=== PATIENT | female | born 1995 | race Caucasian/White ===

== ENCOUNTER 2025-02-06 10:38 | Emergency (ER) | payer MEDICAID ==
[~2025-02-06] VITALS: Ht 172.7 cm; Wt 63.4 kg
--- NOTE | 2025-02-06 10:59 | Physician Documentation ---
History of Present Illness ~ Chief Complaint: Back Pain Stated Complaint: BACK PAIN Time Seen by MD: 10:59 HPI 29-year-old female who presents to the emergency department reporting that she bent forward at the waist two days ago to slat pickler a case of water. She felt immediate pain and she went to straighten. Pain is located left lower back. No chills or fever, no incontinence or numbness. She reports the pain as being very tight. Reports muscle spasm, and difficulty straightening. Medication Reconciliation Allergies: Coded Allergies: No Known Allergies (Unverified , 02/06/25) Scheduled Docusate Sodium (Colace), 1 CAP PO Q12H Naproxen (Naproxen), 1 TAB PO Q12H Polyethylene Glycol 3350 (Miralax), 17 GM PO DAILY Tizanidine Hcl (Zanaflex), 1 TAB PO HS Review of Systems ROS As stated above in the HPI, otherwise all systems are reviewed and negative. Physical Exam Physical Exam Vital Signs: Heart Rate: 82, Respiratory Rate: 16, BP: 123/83, Pulse Oximetry: 100, Weight: 63.400 Oxygen Flow Rate: 0 Physical Exam General: Alert, no apparent distress. Neck: Full range of motion. Respiratory: Lungs clear, no respiratory distress. Chest: No accessory muscle use. Back: No midline tenderness, crepitus, or step-offs to palpation of spine from neck to lower lumbar. TTP of musculature left lower back adjacent to lumbar spine. Palpable spasm of the muscles. Cardiovascular: Regular rate and rhythm, no murmurs. Gastrointestinal: Soft, nontender, nondistended. Bowels sounds present. Extremities: Normal range of motion, no deformity. Neurologic: Oriented x4. Patellar reflexes symmetrical and normal bilat. Psychiatric: Normal mood and affect. Skin: Normal color, warm and dry. No edema, no ecchymosis. Progress Results/Orders Results/Orders Orders - SUSY MORTENSEN NP Lumbar Spine Limited (02/06/25 11:05) Completed Orders - SUSY MORTENSEN DOCUMENTATION SUPERVISOR Lumbar Spine Limited (02/06/25 11:05) Ketorolac Trometh 30mg/Ml Vial (Toradol (02/06/25 11:05) Diazepam Tablet (Valium Tablet) (02/06/25 11:05) Medications Received in ER Medications (Trade) Dose Ordered Sig/Radha Route PRN Reason Start Time Stop Time Status Last Admin Dose Admin (Toradol inj. 30mg/ml) 30 mg ONCE ONCE IM 02/06/25 11:05 02/06/25 11:07 DC 02/06/25 11:23 30 MG (Valium tablet) 5 mg ONCE ONCE PO 02/06/25 11:05 02/06/25 11:07 DC 02/06/25 11:20 5 MG Vital Signs 02/06/25 02/06/25 10:47 11:23 Pulse 82 Resp 16 16 B/P (MAP) 123/83 Pulse Ox 100 O2 Flow Rate 0 EKG/XRAY/CT/US/VASC/MRI Bone/Soft Tissue X-Ray (Spine) : Additional Comment DIAGNOSTIC RADIOLOGY Patient: BAILEY SINGH Medical Record: [id number] [facility] 1995, Age: 29 Sex: Female Location: ER Patient Status: [facility] ER Service Date/Time: 02/06/25/ 1105 Ordering Physician: SUSY MORTENSEN NP Exam: LUMBAR SPINE LIMITED Indication: pain Technique: 3 views lumbar spine Comparison: None FINDINGS/IMPRESSION: Lumbar vertebral body heights are maintained. Alignment maintained. Mild multilevel disc space narrowing. [id number] bilateral sacroiliac degenerative joint disease. Moderate to large volume stool within the imaged portion of the large bowel. 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 She presented today due to a couple of days of left lower back pain after bending forward to slat pickler a case of water. She does note that she has had intermittent issues with her back in the last three years that she has worked as a certified professional coder. The pain is to the left lower back musculature, in his radiating down the left leg. She denies any danger signs to include numbness, incontinence, IV drug use, fevers. She was medicated for spasm with a Valium 5 mg orally, she was medicated for pain with Toradol 30 mg IM. Lumbar x-ray showed evidence of degenerative disc disease. No acute fractures or dislocations. Discussed with the patient that the mainstay of her treatment is supportive care and referral to physical therapy. She will be instructed to remain off work for the next several days. She should return if worse, otherwise see primary care provider and request a referral to physical therapy. Departure Time of Disposition: 11:49 Disposition: HOME / SELF CARE / HOMELESS Impression: Primary Impression: Lumbar sprain Qualified Codes: S33.5XXA - Sprain of ligaments of lumbar spine, initial encounter Additional Impressions: Lumbar disc disease with radiculopathy Constipation Condition: Stable Discharge Instructions: Acute Back Pain, Adult, Back Exercises, Constipation, Adult, Lumbosacral Strain Additional Instructions: No fractures but you do already at your young age have evidence of some degenerative disc disease. You are also moderately constipated-see provided prescriptions to alleviate this issue. See the provided work note. You are being sent with muscle relaxants and naproxen. Avoid prolonged sitting, but do try to walk often with good posture. When lying down, you should be on your side with a pillow between your knees or on your back with a thick pillow under your thighs. Please see your primary care provider soon and request a referral to physical therapy. You may at some point need to see a spinal specialist if you are not improving with PT. Typically, this type of back "sprain" is better within a couple weeks. Return if worse, such as with danger signs: incontinence, numbness in the groin, severe pain unrelieved by the provided medications. Referrals: NO PRIMARY CARE PROVIDER (PCP) Prescriptions Docusate Sodium (Colace) 100 Mg Capsule 1 CAP PO Q12H for constipation for 30 Days, #60 CAP 0 Refills Prov: SUSY MORTENSEN NP 02/06/25 Polyethylene Glycol 3350 (Miralax) 17 Gram/Dose Powder 17 GM PO DAILY for constipation, #255 GM 0 Refills dissolve in water Prov: SUSY MORTENSEN NP 02/06/25 Tizanidine Hcl (Zanaflex) 2 Mg Tablet 1 TAB PO HS for muscle spasm for 30 Days, #30 TAB 0 Refills Prov: SUSY MORTENSEN NP 02/06/25 Naproxen (Naproxen) 500 Mg Tablet 1 TAB PO Q12H, #20 TAB Prov: SUSY MORTENSEN NP 02/06/25 Education Educated: Patient, Family Educated regarding: diagnosis, treatment, prognosis, need for follow up Signature Scribe Signature: no scribe Attestation: The note accurately reflects work and decisions made by me.Susy Pastrana NP 02/06/25 11:07 SUSY MORTENSEN NP Feb 06, 2025 10:59
[2025-02-06] MEDS: diazepam 5mg tablet PO ONE (11:20)
[2025-02-06] MEDS: ketorolac trometh 30MG/ML vial 30 MG/ML VIAL IM ONE (11:23)
--- NOTE | 2025-02-06 11:45 | RADIOLOGY REPORT ---
Indication: pain Technique: 3 views lumbar spine Comparison: None FINDINGS/IMPRESSION: Lumbar vertebral body heights are maintained. Alignment maintained. Mild multilevel disc space narr owing. [id number] bilateral sacroiliac degenerative joint disease. Moderate to large volume stool within the imaged portion of the large bowel.
[2025-02-06] MEDS ORDERED: TIZA-189 PO (11:53)
[2025-02-06] MEDS ORDERED: NAPR-56 PO (11:53)
[2025-02-06] MEDS ORDERED: POLY119P2 PO (11:53)
[2025-02-06] MEDS ORDERED: DOCU-148 PO (11:53)
[2025-02-06 12:10] VITALS: BP 111/79; PULSE 79; RESP 16; TEMP 98.6; O2SAT 99
== END 2025-02-06 12:10 | disposition home or self-care (01) ==
LOC: ER 10:38
DX: S33.5XXA Sprain of ligaments of lumbar spine, initial encounter (principal); K59.00 Constipation, unspecified; X58.XXXA Exposure to other specified factors, initial encounter; Y93.89 Activity, other specified; Y92.89 Other specified places as the place of occurrence of the external cause; Y99.8 Other external cause status
CPT/HCPCS: 72100; 96372; 99283; J1885